=== PATIENT | female | born 1970 | race Caucasian/White ===

== ENCOUNTER 2021-01-13 22:41 | Emergency (ER) | payer SELFPAY ==
[2021-01-13] MEDS ORDERED: ACETAMINOPHEN 1000 MG/100 ML VIAL (NON FORMULARY) IVPB ONE (22:58)
[2021-01-13] MEDS ORDERED: LACTATED RINGERS SOLUTION 1000 ML INFUS.BAG IV ONE (22:58)
[2021-01-13 23:16] LABS: BASO % 0.8 % (0-2.0); EOS % 6.2 % (0-4.5); HEMATOCRIT 31.7 % (32.4-45.2); HEMOGLOBIN 10.1 GM/dL (10.7-15.3); LYMPH % 33.2 % (8-40); MCH 21.4 pg (25.7-33.7); MCHC 31.9 g/dl (32.0-36.0); MEAN PLT VOLUME 7.5 fl (7.5-11.1); MONO % 7.8 % (3.8-10.2); PLATELET COUNT 428 K/MM3 (134-434); RBC 4.74 M/mm3 (3.60-5.2); RDW 19.3 % (11.6-15.6); WHITE BLOOD COUNT 10.1 K/mm3 (4.0-10.0)
[2021-01-13 23:25] VITALS: TEMP 98.8; BMI 34.3
[2021-01-13 23:40] LABS: CHLORIDE 105 mmol/L (98-107); SODIUM 137 mmol/L (136-145)
[2021-01-13 23:43] LABS: ALBUMIN 3.4 g/dl (3.4-5.0); ANION GAP 9 MMOL/L (8-16); BLOOD UREA NITROGEN 11.6 mg/dL (7-18); CO2 24 mmol/L (21-32); GLUCOSE,RANDOM 108 mg/dL (74-106)
[2021-01-13 23:46] LABS: CREATININE 0.8 mg/dL (0.55-1.3); SGOT/AST 17 U/L (15-37); SGPT/ALT 23 U/L (13-61)
[2021-01-13 23:48] LABS: BILIRUBIN,TOTAL 0.2 mg/dL (0.2-1); TOT PROT 7.4 g/dl (6.4-8.2)
[2021-01-13 23:49] LABS: ALK PHOS 97 U/L (45-117)
[2021-01-14 00:55] VITALS: BP 113/51; PULSE 66
[2021-01-14 01:08] LABS: ANISOCYTOSIS 1+
== END 2021-01-14 01:21 | disposition home or self-care (01) ==
LOC: JER 22:41 → EDBD 22:41 → JER 01-14 01:21
PROC: 3E033NZ Introduction of Analgesics, Hypnotics, Sedatives into Peripheral Vein, Percutaneous Approach (ICD-10-PCS; principal; 2021-01-13)
DX: R53.1 Weakness (principal); T50.Z95A Adverse effect of other vaccines and biological substances, initial encounter
CPT/HCPCS: 36415; 71045-TC-FY; 80053; 84484; 85025; 87804; 93005; 93010; 99285-25; C9803; J0131; U0003; U0005

== ENCOUNTER 2022-06-23 18:25 | Emergency (ER) | payer BC ==
[2022-06-23 18:31] VITALS: BP 129/77; PULSE 84; RESP 18; TEMP 98.1; BMI 33.5
[2022-06-23] MEDS ORDERED: IBUPROFEN 600 MG TABLET (FP) PO ONE ×2 (19:39→19:54)
== END 2022-06-23 21:00 | disposition home or self-care (01) ==
LOC: JERFT 18:25 → JER 18:25 → JERFT 21:00
DX: S82.831A Other fracture of upper and lower end of right fibula, initial encounter for closed fracture (principal); W10.9XXA Fall (on) (from) unspecified stairs and steps, initial encounter
CPT/HCPCS: 73610-TC-RT-FY; 99283-25